=== PATIENT | female | born 1965 | race Caucasian/White ===

== ENCOUNTER → 2020-07-22 | Day surgery (SDC) | payer OTHER ==
[~2020-07-22] MED LIST: CALCIUM500 MG PO; CHILDREN'S ASPI81 M1 PO; GLIPIZIDE 10 MG10 MG PO; GYNODIOL0.5 MG PO; HYDROCODON-ACE1 EAC7 PO; IRON159 MG PO; JOINT HEALTH T1 EACH PO; MEDROXYPROGEST2.5 MG PO; METOPROLOL SUCC25 M1 PO; NEURONTIN100 MG PO; NIFEDIPINE ER30 M1 PO; SODIUM BICARBO650 M3 PO; TYLENOL ARTHRI650 MG PO; UNICOMPLEX M TA1 TA1 PO; ZOCOR 10 MG TAB10 MG PO
[2020-07-22 07:23] LABS: ABSOLUTE BASOPHILS 0.1 thou/uL (0.0-0.2); ABSOLUTE EOSINOPHILS 0.2 thou/uL (0.0-0.7); ABSOLUTE LYMPHOCYTES 3.4 thou/uL (0.8-5.3); ABSOLUTE MONOCYTES 0.5 thou/uL (0.0-1.2); ABSOLUTE NEUTROPHILS 8.6 thou/uL (1.6-8.1); BASOPHILS 0.8 %; EOSINOPHILS 1.6 %; HEMATOCRIT 30.5 % (37.0-47.0); HEMOGLOBIN 10.1 gm/dL (12.0-15.0); LYMPHOCYTES 26.7 %; MCH 30.5 pg (26.0-34.0); MCHC 33.1 g/dL (28.0-37.0); MCV 91.9 fL (80.0-100.0); MONOCYTES 4.2 %; MPV 7.5 fl. (7.2-11.1); NUCLEATED RBCS 0 /100WBC; PLATELET COUNT* 301 thou/uL (150-400); POLYS 66.7 %; RBC 3.32 mil/uL (4.20-5.00); WBC 12.9 thou/uL (4.0-11.0)
[2020-07-22 07:34] LABS: CALCIUM 9.3 mg/dL (8.5-10.1); CREATININE 4.8 mg/dL (0.6-1.3); POTASSIUM 4.5 mmol/L (3.5-5.1)
--- NOTE | 2020-07-22 09:44 | EKG ---
[place] [address] ELECTROCARDIOGRAM REPORT Name: DANISHA WILKINS Room: [facility]#: [id number] Admission: 07/22/20 Attend Phys: Isacc Puckett Discharge: Date of : 69 Date of Service: 07/22/20724 Report #: [id number] THIS REPORT FOR: //name// [facility] Test Date: 2020-07-22 Test Time: 07:25:07 Pat Name: DANISHA WILKINS Department: Room: Gender: Hospitality Coordinator: Yola SALINAS RN : 1965 Requested By: Isacc Blackburn Order Number: [id number] Reading MD: Armando Ponce Measurements Intervals [place] Rate: 70 P: 22 SD: 137 QRS: 51 QRSD: 94 T: 35 QT: 390 QTc: 421 Interpretive Statements Sinus rhythm No previous ECG available for comparison Electronically Signed On 07-22-2020 9:44:22 CDT by Armando Ponce [email or web address] <ELECTRONICALLY SIGNED> By: Armando Ponce MD, [facility] 07/22/2044 4 4 Armando Ponce MD, FACC /EPI
--- NOTE | 2020-07-23 11:08 | OP ---
[facility] [address] [place] [address] OPERATIVE REPORT Name: DANISHA WILKINS Room: [facility]#: [id number] Admission: 07/22/20 Attend Phys: Isacc Blackburn Discharge: Date of : 69 Report #: [id number] THIS REPORT FOR: cc: Rhianna Singh MD, Ghazal A. MD Patterson, Jonathan D. MD ~ DOC #: [id number] Isacc Blackburn MD DATE OF SURGERY: 07/22/2020 PREOPERATIVE DIAGNOSIS: End-stage renal disease. POSTOPERATIVE DIAGNOSIS: End-stage renal disease. OPERATION: 1. Laparoscopic placement of tunneled intraperitoneal catheter. 2. Laparoscopic omentopexy. SURGEON: Isacc Blackburn MD ANESTHESIA: General. ESTIMATED BLOOD LOSS: Minimal. SPECIMENS: None. DESCRIPTION OF PROCEDURE: After informed consent was obtained, the patient was brought to the operating room and placed supine. SCDs were placed and working, preoperative antibiotics were administered, general anesthesia was induced. The abdomen was prepped and draped in the usual sterile fashion. A 5 mm incision was made in the left upper quadrant. A 5 mm trocar was placed under direct vision. Pneumoperitoneum was established. A left-sided 5 mm trocar was placed. The omentum was grasped and retracted superiorly. A PMI suture passer was used with a 2-0 Vicryl suture to go through the fascia and then to the omentum and then back out through the fascia. Two of these sutures were placed, thereby completing the omentopexy. I then placed a left-sided 8 mm trocar. A 62 cm Covidien catheter was placed. It was placed down into the pelvis. Catheter was then tunneled in the left upper quadrant of the abdomen. The ports were removed under direct vision. The catheter was then flushed with 750 mL of heparinized saline and it drained 250 mL readily. The skin was closed with 4-0 Monocryl. Incisions were dressed with Steri-Strips and an occlusive dressing. COMPLICATIONS: [place] [address] OPERATIVE REPORT Name: DANISHA WILKINS Room: [facility]#: [id number] Admission: 07/22/20 Attend Phys: Isacc Blackburn Discharge: Date of : 69 Report #: [id number] DISPOSITION: The patient was taken to recovery in satisfactory condition. Isacc Blackburn MD JDP/MAX <ELECTRONICALLY SIGNED> By: Isacc Blackburn MD 07/23/20 1108 [id number] Blackburn MD /michelle
== END | disposition home or self-care (01) ==
LOC: M.SUR 06:31
PROVIDERS: ATTEND Surgery
DX: N18.6 End stage renal disease (principal); Z98.890 Other specified postprocedural states; Z79.899 Other long term (current) drug therapy; Z79.82 Long term (current) use of aspirin